=== PATIENT | female | born 1980 | race Two or more races ===

== ENCOUNTER 2022-06-07 11:24 | Emergency (ER) | payer SELFPAY ==
[~2022-06-07] VITALS: Ht 165.1 cm; Wt 87.1 kg
[2022-06-07] MEDS ORDERED: MULVITA PO (11:47)
[2022-06-07] MEDS ORDERED: ALBU90OI (11:48)
[2022-06-07] MEDS ORDERED: NYST237S MT (11:51)
[2022-06-10 14:09] LABS: HSV-1 DNA Negative (Negative); HSV-2 DNA Negative (Negative)
== END 2022-06-07 11:58 | disposition home or self-care (01) ==
LOC: ER 11:24
PROVIDERS: Physician Assistant
DX: K12.0 Recurrent oral aphthae (principal); Z79.899 Other long term (current) drug therapy; J45.909 Unspecified asthma, uncomplicated
CPT/HCPCS: 87529; 99282

== ENCOUNTER 2023-10-29 11:13 | Day surgery (SDC) | payer OTHER ==
[~2023-10-29] VITALS: Ht 165.1 cm; Wt 189.5 kg
[~2023-10-29 11:13] MED LIST: ALBU90OI; Lactated Ringer's 1,000 ML IV ONE; MULVITA PO; NYST237S MT; propofoL 50 ML IV ONE
[2023-10-29] MEDS ORDERED: Lactated Ringer's 1,000 ML IV ONE ×2 (11:25)
[2023-10-29] MEDS ORDERED: Amlodipine Bes2.5 MG PO (11:50)
[2023-10-29] MEDS ORDERED: GABA300 PO (11:50)
[2023-10-29] MEDS ORDERED: propofoL 0 ML IV ONE (12:43)
[2023-10-29 13:18] VITALS: BP 128/90
== END 2023-10-29 13:26 | disposition home or self-care (01) ==
LOC: ORSCSDS 11:13
PROVIDERS: Specialist
PROC: 0DBP8ZX Excision of Rectum, Via Natural or Artificial Opening Endoscopic, Diagnostic (ICD-10-PCS; principal; 2023-10-29 12:30)
PROC: 0DB58ZX Excision of Esophagus, Via Natural or Artificial Opening Endoscopic, Diagnostic (ICD-10-PCS; principal; 2023-10-29 12:30)
PROC: 0DBH8ZX Excision of Cecum, Via Natural or Artificial Opening Endoscopic, Diagnostic (ICD-10-PCS; principal; 2023-10-29 12:30)
PROC: 0DB68ZX Excision of Stomach, Via Natural or Artificial Opening Endoscopic, Diagnostic (ICD-10-PCS; principal; 2023-10-29 12:30)
DX: Z12.11 Encounter for screening for malignant neoplasm of colon (principal); K21.9 Gastro-esophageal reflux disease without esophagitis; K62.1 Rectal polyp; K63.5 Polyp of colon; K57.30 Diverticulosis of large intestine without perforation or abscess without bleeding; K44.9 Diaphragmatic hernia without obstruction or gangrene; K31.89 Other diseases of stomach and duodenum; I10 Essential (primary) hypertension; Z79.899 Other long term (current) drug therapy
CPT/HCPCS: 88305; 88342; J2704; J7120